=== PATIENT | female | born 1935 | race Caucasian/White ===

== ENCOUNTER 2016-11-19 17:58 | Inpatient (IN) | payer OTHER ==
[~2016-11-19] VITALS: Ht 162.6 cm; Wt 99.8 kg
[2016-11-19] VITALS (8 sets, daily range): BP systolic 67–113; BP diastolic 27–93
--- NOTE | ~2016-11-19 | HC ---
[facility] [address] [place] [address] CONSULTATION Name: JOSE BENTON Room #: 239-P [facility] IN M.R.#: [id number] Admission: 11/19/16 Attend Phys: uLis Bocanegra MD Discharge: 11/20/16 Date of : 35 Report #: [id number] THIS REPORT FOR: //name// CC: Kerline Bocanegra REASON FOR CONSULTATION: End-stage renal disease. REASON FOR PRESENTATION: Low blood pressure, low heart rate while on dialysis. HISTORY OF PRESENT ILLNESS: The patient is an 81-year-old with past medical history of breast cancer and end-stage renal disease. She is well known to me. She dialyzes at the [facility]. Before that, she used to be at the [facility]. She was in the dialysis facility yesterday, when toward the end of the treatment, she started to have hypoglycemia, hypotension, bradycardia and was sent for further evaluation and management. When she presented to the emergency room, she was found again to be hypoglycemic and hypotensive. She is a DNR patient with known extensive breast cancer. Her initial laboratory evaluations revealed metabolic acidosis with a white blood cell count of 29,000 and the low platelet. She was also found to be in persistent hypoglycemia as I have stated. Cultures from the blood were obtained, and they are not back yet. She is a dialysis patient every Tuesday, Tuesday and Tuesday utilizing a right IJ tunneled catheter. When evaluated this morning, she reported that she has not slept and not feeling well because of that. She is also short of breath. PAST MEDICAL HISTORY: 1. End-stage renal disease. 2. Dialysis status every Tuesday, Tuesday and Tuesday. 3. Anemia. 4. Hyperparathyroidism. 5. Breast cancer. 6. Sleep apnea. 7. Morbid obesity. 8. Pressure ulcers. MEDICATIONS: 1. Darbepoetin. 2. B complex. 3. Levothyroxine. 4. Pantoprazole. 5. Zoloft. ALLERGIES: ADHESIVE TAPE. PAST SURGICAL HISTORY: Right IJ tunneled catheter. [facility] [address] [place] [address] CONSULTATION Name: JOSE BENTON Room #: 239-P [facility] IN .R.#: [id number] Admission: 11/19/16 Attend Phys: Luis Bocanegra MD Discharge: 11/20/16 Date of : 35 Report #: [id number] REVIEW OF SYSTEMS: GENERAL: Significant weakness. CARDIOVASCULAR: Significant shortness of breath, no palpitations. PULMONARY: Significant for shortness of breath. GASTROINTESTINAL: No nausea or vomiting. No abdominal pain. MUSCULOSKELETAL: Diffuse arthralgias and myalgias. PHYSICAL EXAMINATION: GENERAL: She is alert, oriented. VITAL SIGNS: Temperature was 36.3 and blood pressure was 99/62, on Levophed. HEAD AND NECK: Right IJ tunneled catheter. CHEST: Decreased air entry bilaterally. CARDIOVASCULAR: Tachycardic with no rub. ABDOMEN: Obese with abdominal wall edema. LOWER EXTREMITIES: Extensive bilateral lower extremity edema. UPPER EXTREMITIES: Extensive upper extremity edema. LABORATORY DATA: Reviewed, pH yesterday 7.2. No chemistry this morning. No CBC this morning; however, her white blood cell count yesterday was 29.2. ASSESSMENT, IMPRESSION AND PLAN: 1. End-stage renal disease. 2. Hypotension. 3. Tachycardia. 4. Leukocytosis. 5. Systemic inflammatory response syndrome. 6. History of breast cancer. 7. Admission to the ICU. 8. No IV fluids as she is already edematous with some fluid overload on the chest x-ray. 9. Pressors. 10. No indication for dialysis at this point. 11. Septic workup was initiated. 12. ID consultation. 13. Appropriate antibiotics initiated in the emergency room. 14. Very fragile situation. We will discuss with the family regarding their expectations. As of this moment, the patient is a DNR. Given her breast cancer, we have discussed with her in the past comfort care and termination of dialysis; however, they wished to continue with the dialysis. This has changed given the patient's current status. I will follow along in the next [address] [address] CONSULTATION Name: JOSE BENTON Room #: 239-P [facility] IN M.R.#: [id number] Admission: 11/19/16 Attend Phys: Luis Bocanegra MD Discharge: 11/20/16 Date of : 35 Report #: [id number] and readdress with the family regarding hospice and palliative care. If that is not the family's wish, we will dialyze next time on Tuesday. <ELECTRONICALLY SIGNED> By: Kamaljit Pritchard MD 11/23/16 [id number] Michelle Coleman MD /nt
--- NOTE | ~2016-11-19 | DEA ---
[facility] [place] [address] [place] [address] SUMMARY Name: JOSE BENTON Room #: 239-P [facility] IN M.R.#: [id number] Admission: 11/19/16 Attend Phys: Luis Bocanegra MD Discharge: 11/20/16 Date of : 35 Report #: [id number] THIS REPORT FOR: //name// CC: Kerline Bocanegra DIAGNOSES: 1. Respiratory failure. 2. Sepsis. 3. End stage renal disease. COURSE OF HOSPITALIZATION: The patient was admitted to the hospital with the above mentioned diagnoses. The patient was resuscitated with IV fluid and vasopressors in addition to antibiotic use. The patient's family elected to stop all supportive measure and initiate comfort care. The patient shortly afterwards. By: 0923 1038 Luis Bocanegra MD /nt
--- NOTE | ~2016-11-19 | EKG ---
[address] [place] [address] ELECTROCARDIOGRAM REPORT Name: JOSE BENTON Room #: 239-P [facility] IN M.R.#: [id number] Admission: 11/19/16 Attend Phys: Luis Bocanegra MD Discharge: Date of : 35 Report #: [id number] THIS REPORT FOR: //name// [facility] ED Test Date: 2016-11-19 Test Time: 18:08:21 Pat Name: JOSE BENTON Department: Room: 239 Gender: F Plastics Technician: RIYA : 1935 Requested By: Jamel Zamorano Order Number: [id number] MD: Sachin Montalvo Measurements Intervals [place] Rate: 71 P: -27 AK: 159 QRS: 74 QRSD: 92 T: 45 QT: 448 QTc: 487 Interpretive Statements Sinus arrhythmia Probable precordial lead reversal Borderline prolonged QT interval No previous ECG available for comparison Electronically Signed On 11-20-2016 10:12:26 CDT by Sachin Montalvo [email or web address] <ELECTRONICALLY SIGNED> By: Sachin Montalvo MD, [facility] 11/20/16 1012 D: [id number] Sachin Montalvo MD, FACC /EPI
--- NOTE | ~2016-11-19 | H ---
[facility] [address] [address] HISTORY AND PHYSICAL Name: JOSE BENTON Room #: 239-P [facility] IN M.R.#: [id number] Admission: 11/19/16 Attend Phys: Luis Bocanegra MD Discharge: 11/20/16 Date of : 35 Report #: [id number] THIS REPORT FOR: //name// CC: Kerline Bocanegra DATE OF SERVICE: 11/19/2016 HISTORY OF PRESENT ILLNESS: The patient is an 81-year-old female who is on dialysis. The patient was brought to the emergency room because of having drop in her blood pressure and heart rate. During dialysis, the patient was somnolent and on arrival to the hospital, she was found to have an oxygen of 70% on room air in addition to hypoglycemia with glucose level of 43. The patient was given D10 en route. The patient was found to be hypotensive. She was thought to be septic. She was started on IV boluses in addition to Levophed. The patient was resuscitated by the and she was admitted to the ICU. The patient was on BiPAP machine initially because of abnormal ABGs, but now she is on 100% nonrebreather. PAST MEDICAL HISTORY: Significant for end-stage renal disease, on hemodialysis; congestive heart failure; hypertension. The patient had a history of anemia, iron deficiency, hyperparathyroidism, breast cancer, gouty arthritis, anxiety and depression, osteoarthritis, sleep apnea, pressure ulcers on the buttocks in addition to pneumonia. MEDICATIONS: Reviewed and reconciled. ALLERGIES: ADHESIVES TAPES. FAMILY HISTORY, SOCIAL HISTORY AND REVIEW OF SYSTEMS: Unobtainable. PHYSICAL EXAMINATION: VITAL SIGNS: On arrival to the hospital showed a temperature of 98.3, pulse 59, respirations 23, blood pressure 92/27 and oxygen saturation was 97%. HEAD AND NECK: Remarkable for pale-looking discoloration. The patient's neck was supple. The patient is on 100% nonrebreather. LUNGS: Clear to auscultation with very poor respiratory effort. CARDIAC: S1, S2. ABDOMEN: Benign. Bowel sounds were positive. EXTREMITIES: +2 edema bilaterally. LABORATORY DATA: A 12-lead EKG showed sinus arrhythmia with right ventricular hypertrophy or posterior infarct, borderline prolonged QT interval. The patient's glucose was 59. CBC showed a white count of 29.2, hemoglobin 11.3, hematocrit 37.4, platelet count 137, glucose went up to 193. Chest x-ray showed [facility] [address] [place] [address] HISTORY AND PHYSICAL Name: JOSE BENTON Room #: 239-P [facility] IN [facility].#: [id number] Admission: 11/19/16 Attend Phys: Luis Bocanegra MD Discharge: 11/20/16 Date of : 35 Report #: [id number] right pleural effusion with right lower lung infiltration and atelectasis, a small left pleural effusion. Basic metabolic panel showed sodium of 137, potassium 4.2, chloride 100, bicarbonate 17, BUN 8, creatinine 2.8, glucose of 57. The patient's troponin was 0.18. CT of the head showed chronic age-related changes and no acute intracranial process identified. CT of the chest showed bilateral pleural effusion with bilateral posterior lower lung infiltrates and atelectasis, no other acute-appearing abnormalities in the chest. ABGs showed a pH of 7.29, pCO2 of 22, pO2 of 264. Oxygen saturation was 99%. The patient's lactic acid was 14.1, glucose 109. Repeated lactic acid was 13. ASSESSMENT AND PLAN: 1. Possible sepsis. 2. Hypoglycemia. 3. Hypotension. 4. End-stage renal disease, on hemodialysis. The patient was admitted to the hospital with the above-mentioned diagnoses. The patient's son who is the power of automotive service cashier asked to stop the IV antibiotics because he does not want to have any aggressive measure and he wanted to refer the decision of any treatment to the patient herself. When I went to talk to the patient, she is alert and she is able to answer some questions, but unfortunately I do not think that she is able to make a decision. For this reason, the son was agreeing to continue the antibiotics for another day, reevaluate the patient after one day and depending on that he will decide if he wants to continue with the aggressive treatment or to initiate hospice care. The patient was still on Levophed, she is to continue that for now. We had multiple subspecialties consulted on the patient. I will continue with the antibiotics until we make a decision about the aggressiveness of treatment. <ELECTRONICALLY SIGNED> By: Luis Bocanegra MD 11/21/16 0924 [id number] Luis Bocanegra MD /nt
[2016-11-19 18:43] LABS: HEMATOCRIT 37.4 % (37.0-47.0); HEMOGLOBIN 11.5 gm/dL (12.0-15.0); MCH 30.8 pg (26.0-34.0); MCHC 30.8 g/dL (28.0-37.0); RBC 3.74 mil/uL (4.20-5.00); WBC 29.2 thou/uL (4.0-11.0)
[2016-11-19 18:55] LABS: CALCIUM 8.7 mg/dL (8.5-10.1); CREATININE 2.8 mg/dL (0.6-1.0); POTASSIUM 4.2 mmol/L (3.5-5.1)
[2016-11-19 19:04] LABS: TROPONIN-I 0.18 ng/mL (<0.04-0.07)
[2016-11-19] MEDS ORDERED: CALCITRIOL0.25 MCG PO (19:54)
[2016-11-19 19:55] LABS: ABG SAMPLE TYPE ARTERIAL; BE(vivo) -14.2 mmol/L (-2 to +3); HCO3 10.4 mmol/L (22.0-26.0); LACTATE 15.93 mmol/L (0.5-2.0); O2Hb 98.8 % (92.0-98.0); STICK SITE R.BRACHIAL; pH 7.293 (7.360-7.450); sO2 99.6 % (92.0-98.0); tCO2 11.1 mmol/L (24.0-30.0)
[2016-11-19] MEDS ORDERED: ARANESP25 MCG/1 M IV (20:31)
[2016-11-19] MEDS ORDERED: FERRLECIT62.5 MG/2 IV (20:32)
[2016-11-19] MEDS ORDERED: [UNRECOGNIZED DRUG - OTHER] ×2 (20:33→20:34)
[2016-11-19] MEDS ORDERED: BACTROBAN CREAM30 G1 (20:35)
[2016-11-19] MEDS ORDERED: APAP500 PO (20:35)
[2016-11-19] MEDS ORDERED: HYDROCODONE-AP1 EAC6 PO (20:36)
[2016-11-19] MEDS ORDERED: AMOXICILLIN PO (20:37)
[2016-11-19] MEDS ORDERED: CLAVULANATE PO (20:37)
[2016-11-19] MEDS ORDERED: DOCUSATE SODIU100 MG PO (20:38)
[2016-11-19] MEDS ORDERED: NEPHROCAPS SOFT1 CAP PO (20:38)
[2016-11-19] MEDS ORDERED: FERRIC CITRATE PO (20:39)
[2016-11-19] MEDS ORDERED: LEVOTHYROXIN0.025 MG PO (20:39)
[2016-11-19] MEDS ORDERED: MELATONIN5 M4 PO (20:56)
[2016-11-19] MEDS ORDERED: SERTRALINE HCL50 MG PO (20:57)
[2016-11-19] MEDS ORDERED: PROTONIX40 M1 PO (20:57)
[2016-11-20] VITALS (65 sets, daily range): BP systolic 49–177; BP diastolic 20–161
[2016-11-20 12:37] LABS: ABG SAMPLE TYPE ARTERIAL; BE(vivo) -19.2 mmol/L (-2 to +3); HCO3 9.6 mmol/L (22.0-26.0); O2(CT) 16.9 mL/dL (15.0-23.0); O2Hb 98.8 % (92.0-98.0); PCO2 32.8 mmHg (35.0-45.0); PO2 315.1 mmHg (80.0-100.0); sO2 99.5 % (92.0-98.0); tCO2 10.6 mmol/L (24.0-30.0)
[2016-11-20 12:54] LABS: STICK SITE R.RADIAL; pH 7.084 (7.360-7.450)
[2016-11-20 14:05] LABS: HEMATOCRIT 31.2 % (37.0-47.0); MCH 31.3 pg (26.0-34.0); MCHC 29.8 g/dL (28.0-37.0); MCV 104.9 fL (80.0-100.0); PLATELET COUNT 103 thou/uL (150-400); RBC 2.98 mil/uL (4.20-5.00); RDW 22.1 % (10.5-14.5); WBC 32.8 thou/uL (4.0-11.0)
[2016-11-20 14:07] LABS: HEMOGLOBIN 9.3 gm/dL (12.0-15.0)
[2016-11-20 14:08] LABS: MANUAL DIFF YES
[2016-11-20 14:27] LABS: ALBUMIN 1.3 g/dL (3.4-5.0); CALCIUM 8.4 mg/dL (8.5-10.1); CREATININE 3.7 mg/dL (0.6-1.0); TOTAL BILIRUBIN 1.1 mg/dL (<0.1-1.0)
[2016-11-20 14:43] LABS: TOTAL CELL COUNT 100
[2016-11-20 14:44] LABS: ANISOCYTOSIS 1+; MACROCYTES 1+; METAMYELOCYTES 1 %
[2016-11-20 14:45] LABS: ABSOLUTE NEUTROPHILS 30.2 thou/uL (1.4-8.2)
== END 2016-11-20 20:39 | DRG 871 ==
LOC: EDBD 17:58 → ER 17:58 → EROBS 20:22 → ICU 20:22
PROVIDERS: Emergency Medicine; Internal Medicine Pulmonary Disease
DX: A41.9 Sepsis, unspecified organism (principal); N18.6 End stage renal disease; R65.21 Severe sepsis with septic shock; G93.40 Encephalopathy, unspecified; J69.0 Pneumonitis due to inhalation of food and vomit; J96.90 Respiratory failure, unspecified, unspecified whether with hypoxia or hypercapnia; I13.2 Hypertensive heart and chronic kidney disease with heart failure and with stage 5 chronic kidney disease, or end stage renal disease; C50.919 Malignant neoplasm of unspecified site of unspecified female breast; E21.3 Hyperparathyroidism, unspecified; F41.9 Anxiety disorder, unspecified; Z66 Do not resuscitate; Z51.5 Encounter for palliative care; F32.9 Major depressive disorder, single episode, unspecified; M19.90 Unspecified osteoarthritis, unspecified site; I50.9 Heart failure, unspecified; M10.9 Gout, unspecified; E66.01 Morbid (severe) obesity due to excess calories; E16.2 Hypoglycemia, unspecified; D64.9 Anemia, unspecified; D69.6 Thrombocytopenia, unspecified; Z79.899 Other long term (current) drug therapy; Z99.2 Dependence on renal dialysis; Z68.37 Body mass index [BMI] 37.0-37.9, adult; Z85.3 Personal history of malignant neoplasm of breast; Z91.048 Other nonmedicinal substance allergy status
CPT/HCPCS: 10078